=== PATIENT | female | born 1965 | race Caucasian/White ===

== ENCOUNTER → 2017-09-18 | Outpatient (CLI) | payer OTHER | LOC: FIMAGING 08:02 | PROVIDERS: ATTEND Obstetrics & Gynecology | DX: Z12.31 Encounter for screening mammogram for malignant neoplasm of breast (principal) ==

== ENCOUNTER 2017-09-22 06:45 | Emergency (ER) | payer OTHER ==
[2017-09-22 06:54] VITALS: RESP 16; TEMP 98.1
--- NOTE | 2017-09-22 07:42 | EDPHY ---
H & P Stated Complaint: L KNEE LAC Time Seen by Provider: 09/22/17 07:29 HPI/ROS: CHIEF COMPLAINT: Left lower extremity laceration HISTORY OF PRESENT ILLNESS: The patient presents to the ED for evaluation of an extremity laceration which occurred while skiing yesterday. The patient cut herself with the edge of a ski at approximately 1:00 p.m.. The patient sustained a deep 8 cm laceration below the left knee. She has been ambulatory since the accident. The patient denies any acute numbness or weakness. The patient reports her tetanus shot is up-to-date. The patient denies additional injury. REVIEW OF SYSTEMS: A comprehensive 10 point review of systems is otherwise negative aside from elements mentioned in the history of present illness. Source: Patient Exam Limitations: No limitations - Personal History LMP (Females 10-55): Post Menopausal Current Tetanus Diphtheria and Acellular Pertussis (TDAP): Yes - Medical/Surgical History Hx Asthma: No Hx Chronic Respiratory Disease: No Hx Diabetes: No Hx Cardiac Disease: No Hx Renal Disease: No Hx Cirrhosis: No Hx Alcoholism: No Hx HIV/AIDS: No Hx Splenectomy or Spleen Trauma: No Other PMH: Hyperlipidemia. Elbow surg. Spinal stenosis. HIP FX 2014 R - Social History Smoking Status: Never smoked - Physical Exam Exam: General Appearance: Alert, no distress Head: Atraumatic Eyes: Atraumatic Neck: Nontender, trachea midline Respiratory: No chest wall tender, subcutaneous air, lungs clear bilaterally Cardiovascular: Regular rate and rhythm Abdomen: Abdomen is soft and nontender, pelvis stable Skin: Deeply 8 cm laceration noted to left leg below-knee without evidence of joint involvement Back: No midline T/L/S pain Extremities: Nontender, full range of motion Neurological: A&Ox3, normal motor function, normal sensory exam Constitutional: Initial Vital Signs Temperature (C) 36.7 C 09/22/17 06:51 Heart Rate 73 09/22/17 06:51 Respiratory Rate 16 09/22/17 06:51 Blood Pressure 116/72 09/22/17 06:51 O2 Sat (%) 96 09/22/17 06:51 O2 Delivery Mode Room Air Allergies/Adverse Reactions: No Known Allergies Allergy (Verified 08/08/15 10:33) Home Medications: Medication Instructions Recorded Atorvastatin Calcium [Lipitor 40 40 mg PO DAILY 08/23/13 mg (RX)] Calcium Carbonate [Oyster Shell 500 mg PO DAILY 08/23/13 Calcium 500 mg (OTC)] Cholecalciferol Vit D3 [Vitamin D3 1,000 units PO DAILY 08/23/13 1000 units (OTC)] Diazepam [Valium 5 MG (*)] 5 mg PO TID PRN #15 tab 08/08/15 Cephalexin [Keflex] 500 mg PO TID #21 cap 09/22/17 Medical Decision Making ED Course/Re-evaluation: The patient presents to the ED for a leg laceration greater than 12 hr old which is deep in nature. The patient was anesthetized with lidocaine and Demetrio irrigation was performed. The patient will be started on oral antibiotics and encouraged to return to the emergency department in 72 hr for delayed primary closure given the age of her laceration. The patient will keep her wound covered with a clean dry dressing. She is prescribed Keflex three times daily. The patient is noted to be neurovascularly intact without evidence of an open joint. I explained to her the rationale for doing a delayed primary closure. She is comfortable with the plan and disposition. Differential Diagnosis: Differential diagnosis considered includes laceration, open joint, neurovascular injury Departure - Departure Disposition: Home, Routine, Self-Care Clinical Impression: Leg laceration Condition: Good Instructions: Laceration (DC) Additional Instructions: 1. Take antibiotics as directed for next 3 days. 2. Return to the emergency department at 9 o'clock in the morning on 09/25 for a delayed suture repair. 3. Please keep laceration covered with a clean dressing twice daily. Please apply antibiotic ointment twice daily. Referrals: Joss Miller MD [Primary Care Provider] - As per Instructions Prescriptions: Cephalexin [Keflex] 500 mg PO TID #21 cap
[2017-09-22 08:27] VITALS: BP 118/67; PULSE 63; O2SAT 98
== END 2017-09-22 08:27 | disposition home or self-care (01) ==
DX: S81.812A Laceration without foreign body, left lower leg, initial encounter (principal); V00.328A Other snow-ski accident, initial encounter; Y93.23 Activity, snow (alpine) (downhill) skiing, snowboarding, sledding, tobogganing and snow tubing

== ENCOUNTER 2017-09-24 17:53 | Emergency (ER) | payer OTHER ==
[2017-09-24 19:01] VITALS: PULSE 50; RESP 16
--- NOTE | 2017-09-24 22:26 | EDPHY ---
H & P Time Seen by Provider: 09/24/17 20:23 HPI/ROS: CHIEF COMPLAINT: Laceration left knee HISTORY OF PRESENT ILLNESS: 51-year-old female presents to the emergency department for delayed primary closure of her laceration to her left knee. Patient was seen in the emergency department few days ago with a laceration. She had waited 16 hr before coming to the emergency department for closure. She was started on oral Keflex and presents now for delayed primary closure. She denies any other trauma or injury. ROS: Denies numbness or tingling in her toes, retained foreign body, pain in her left ankle or hip. Denies fevers or chills. Past Medical/Surgical History: Right hip fracture requiring surgery Social History: Smoking Status: Never smoked Physical Exam: On examination the patient has a 5 cm laceration to the left anterior aspect of the lower leg just below the left knee. Patellar tendon is intact. No evidence of retained foreign body. No active bleeding noted. Normal sensation to light touch with normal 2 point discrimination. No palpable bony tenderness. No signs of infection. No redness or purulent drainage. Constitutional: Initial Vital Signs Temperature (C) 36.8 C 09/24/17 18:58 Heart Rate 50 L 09/24/17 18:58 Respiratory Rate 16 09/24/17 18:58 Blood Pressure 130/78 H 09/24/17 18:58 O2 Sat (%) 98 09/24/17 18:58 O2 Delivery Mode Room Air Allergies/Adverse Reactions: No Known Allergies Allergy (Verified 09/24/17 18:57) Home Medications: Medication Instructions Recorded Atorvastatin Calcium [Lipitor 40 40 mg PO DAILY 08/23/13 mg (RX)] Calcium Carbonate [Oyster Shell 500 mg PO DAILY 08/23/13 Calcium 500 mg (OTC)] Cephalexin [Keflex] 500 mg PO TID #21 cap 09/22/17 Multivitamin (*) 09/24/17 MDM/Departure - MDM Procedures: Laceration repair. Verbal consent was obtained from the patient. The 5 cm laceration on the left leg was anesthetized using 1% lidocaine with epinephrine. The wound was irrigated with saline, draped and explored to its base with a gloved finger. There were no deep structures involved. No tendon injury was identified. The wound was repaired with 4 0 Vicryl, 5 sutures and 4 0 Ethilon vertical mattress and simple interrupted 9 sutures. The wound repair was complex. The procedure was performed by myself. ED Course/Re-evaluation: 51-year-old female presents with laceration to her left knee. The wound was repaired, see procedure note. The patient will continue antibiotics and was given wound care precautions. - Depart Disposition: Home, Routine, Self-Care Clinical Impression: Laceration of left knee Qualifiers: Encounter type: initial encounter Qualified Code(s): S81.012A - Laceration without foreign body, left knee, initial encounter Condition: Good Instructions: Laceration (ED), Care For Your Stitches (ED), Acute Wounds (ED) Additional Instructions: Wound Care Follow-Up: Removal of sutures in 10-14 days. Suture removal is complimentary in uncomplicated cases. Infection or abnormal findings would require reevaluation by the MD. In that case, you may be billed. Continue antibiotics as prescribed. Return to the emergency department if you notice any signs or symptoms of infection such as redness, swelling, increased pain, fever, purulent drainage. Activity as tolerated. Avoid any open water as discussed to the sutures are removed. Referrals: Joss Miller MD [Primary Care Provider] - As per Instructions
[2017-09-24 22:51] VITALS: BP 120/73; TEMP 96.8; O2SAT 97
== END 2017-09-24 22:48 | disposition home or self-care (01) ==
PROC: 0HQLXZZ Repair Left Lower Leg Skin, External Approach (ICD-10-PCS; principal; 2017-09-24)
DX: S81.012A Laceration without foreign body, left knee, initial encounter (principal); X58.XXXA Exposure to other specified factors, initial encounter

== ENCOUNTER → 2017-11-08 | Outpatient (CLI) | payer OTHER | LOC: FIMAGING 09:37 | PROVIDERS: ATTEND Hospitalist | DX: Z13.820 Encounter for screening for osteoporosis (principal); M81.0 Age-related osteoporosis without current pathological fracture; Z78.0 Asymptomatic menopausal state ==

== ENCOUNTER → 2018-09-23 | Outpatient (CLI) | payer OTHER | LOC: FIMAGING 16:41 | PROVIDERS: ATTEND Orthopaedic Surgery | DX: M79.604 Pain in right leg (principal); M79.89 Other specified soft tissue disorders ==